=== PATIENT | male | born 1955 | race African-American/Black ===

== ENCOUNTER 2021-07-25 21:36 | Emergency (ER) | payer MEDICARE, MEDICAID ==
[~2021-07-25] VITALS: Ht 182.9 cm; Wt 75.0 kg
[2021-07-25 23:42] LABS: CHLORIDE 101 mEq/L (98-107)
[2021-07-25 23:45] LABS: BASOPHILS % 0.6 % (0.0-2.0); EOSINOPHILS % 0.7 % (0.0-5.0); HEMOGLOBIN. 12.5 g/dL (14.0-18.0); LYMPHOCYTES % 22.8 % (20.0-50.0); MEAN CORPUSCULAR VOLUME 91.4 fL (80.0-94.0); MEAN PLATELET VOLUME 8.6 fl (7.4-10.4); MONOCYTES % 8.6 % (2.0-8.0); NEUTROPHILS % 67.3 % (40.0-76.0); PLATELET 206 x1000/uL (130-400); RED BLOOD CELL COUNT 4.05 mill/uL (4.7-6.1); RED CELL DISTRIBUTION WIDTH 14.4 % (11.6-14.6)
[2021-07-25 23:46] LABS: ETHANOL BLOOD < 10 mg/dL
[2021-07-26] MEDS ORDERED: OLANZAPINE 10 MG/VIAL IM ONE (00:45)
[2021-07-26] MEDS ORDERED: AMLODIPINE 5MG TABLET PO ONE (06:00)
[2021-07-26 06:47] LABS: CLARITY URINE CLEAR (CLEAR); COLOR URINE YELLOW (YELLOW); KETONES URINE TRACE (NEGATIVE); LEUKOCYTE ESTERASE URINE NEGATIVE (NEGATIVE); NITRITE URINE NEGATIVE (NEGATIVE); OCCULT BLOOD URINE NEGATIVE (NEGATIVE); PH URINE 7.5 (4.5-8.0); PROTEIN URINE NEGATIVE (NEGATIVE); SPECIFIC GRAVITY URINE 1.012 (1.005-1.030)
[2021-07-26 07:06] LABS: *AMPHETAMINES SCREEN URINE NEGATIVE (NEGATIVE); *BARBITURATES SCREEN URINE NEGATIVE (NEGATIVE); *BENZODIAZEPINES SCREEN URINE NEGATIVE (NEGATIVE); *COCAINE SCREEN URINE NEGATIVE (NEGATIVE)
[2021-07-26 07:07] LABS: CANNABINOID URINE SCREEN NEGATIVE (NEGATIVE); METHADONE URINE SCREEN NEGATIVE (NEGATIVE); OPIATES URINE SCREEN NEGATIVE (NEGATIVE); PHENCYCLIDINE URINE SCREEN NEGATIVE (NEGATIVE)
[2021-07-26] MEDS: OLANZAPINE 5MG TABLET PO SCH (16:39)
[2021-07-27] MEDS: OLANZAPINE 5MG TABLET PO SCH (08:38)
[2021-07-27] MEDS ORDERED: AMLODIPINE 10MG TABLET PO ONE (09:45)
[2021-07-27] MEDS ORDERED: HYDRALAZINE 20MG/ML VIAL IV ONE (11:45)
[2021-07-27] MEDS ORDERED: CLONIDINE 0.1MG TABLET PO ONE (12:00)
[2021-07-27 14:56] VITALS: BP 148/96
== END 2021-07-27 15:17 ==
LOC: ER 21:36
DX: F20.9 Schizophrenia, unspecified (principal); Z20.822 Contact with and (suspected) exposure to COVID-19
CPT/HCPCS: 36415; 80053; 80307; 80320; 80329; 85025; 96372; 99285; C9803; J3490; U0005; G0480